=== PATIENT | male | born 1975 | race Caucasian/White ===

== ENCOUNTER → 2016-12-23 | Outpatient (CLI) | payer OTHER ==
[~2016-12-23] MED LIST: ACULAR 3 ML3 M1 OP; ANAPROX DS550 MG PO; DURICEF500 MG PO; FLONASE ALLERG9.9 ML NAS; LIDEX0.05% T; LISINOPRIL HCTZ1 TA1 PO; MOTRIN800 MG PO; PREDNICOT20 MG PO; PREDNISONE10 MG PO; ROBITUSSIN AC 110 ML PO; TRAMADOL HCL50 MG PO; TRICOR48 MG PO; Tobrex Ophth S2.5 ML OPH; ZYRTEC10 MG PO
== END | disposition home or self-care (01) ==
LOC: US 11-29 10:00
DX: K76.0 Fatty (change of) liver, not elsewhere classified (principal); E78.1 Pure hyperglyceridemia; R74.8 Abnormal levels of other serum enzymes

== ENCOUNTER → 2017-01-17 | Outpatient (CLI) | payer OTHER ==
[~2017-01-17] MED LIST changes: +ASPIR 8181 MG PO; +FENOFIBRATE160 MG PO; +NORVASC5 MG PO; +PREVACID30 M3 PO
== END | disposition home or self-care (01) ==
LOC: CARD 01:36
DX: R07.89 Other chest pain (principal)

== ENCOUNTER 2021-11-29 20:26 | Emergency (ER) | payer BC | END 2021-11-29 20:46 | disposition home or self-care (01) | LOC: ED 20:26 | DX: S01.01XA Laceration without foreign body of scalp, initial encounter (principal); Z79.899 Other long term (current) drug therapy; Z79.82 Long term (current) use of aspirin; X58.XXXA Exposure to other specified factors, initial encounter; Y93.89 Activity, other specified; Y92.89 Other specified places as the place of occurrence of the external cause; Y99.8 Other external cause status ==

== ENCOUNTER 2023-08-03 20:38 | Emergency (ER) | payer BC ==
[~2023-08-03] VITALS: Ht 180.3 cm; Wt 112.0 kg
[2023-08-03 21:59] LABS: BASO # 0.1 10*3/uL (0.0-0.1); BASO % 0.6 % (0.0-1.0); EOS # 0.3 10*3/uL (0.0-0.4); EOS % 3.4 % (1.0-4.0); HEMATOCRIT 46.9 % (42.0-52.0); LYMPH # 2.4 10*3/uL (1.3-4.4); LYMPH % 27.7 % (27.0-41.0); MEAN CELL VOLUME 88.3 fl (80.0-94.0); MEAN CORPUSCULAR HGB 31.8 pg (27.0-31.0); MONO # 0.7 10*3/uL (0.1-1.0); MONO % 8.2 % (3.0-9.0); NEUT # 5.2 10*3/uL (2.3-7.9); NEUT % 59.8 % (47.0-73.0); PLATELET COUNT AUTOMATED 330 10*3/uL (130-400); RED BLOOD COUNT 5.31 10*6/uL (4.50-5.90); RED CELL DISTRI WIDTH 12.5 % (0-14.5); WHITE BLOOD COUNT 8.7 10*3/uL (4.8-10.8)
[2023-08-03 22:15] LABS: ALKALINE PHOSPHATASE 62 U/L (46-116); BUN 12 mg/dl (9-23); CHLORIDE 105 mmol/L (98-107); POTASSIUM 3.3 mmol/L (3.4-5.1); SGPT/ALT 42 U/L (5-49); TOTAL PROTEIN 7.3 gm/dL (6.0-8.0)
[2023-08-03 22:18] LABS: ACT PARTIAL THROMBO TIME 27.7 SECONDS (20.0-32.1)
== END 2023-08-05 03:41 | disposition short-term general hospital (02) ==
LOC: ED 20:38
PROVIDERS: Family Medicine
DX: I21.4 Non-ST elevation (NSTEMI) myocardial infarction (principal); F17.210 Nicotine dependence, cigarettes, uncomplicated; Z79.899 Other long term (current) drug therapy

== ENCOUNTER 2024-08-11 15:25 | Emergency (ER) | payer BC ==
[~2024-08-11] VITALS: Ht 177.8 cm; Wt 106.6 kg
[2024-08-11] MEDS ORDERED: ZYRTEC-D TABLE1 EACH PO (16:11)
[2024-08-11] MEDS ORDERED: COREG12.5 M1 PO (16:11)
[2024-08-11] MEDS ORDERED: NORVASC2.5 MG PO (16:11)
[2024-08-11] MEDS ORDERED: LIPITOR40 MG PO (16:11)
[2024-08-11] MEDS ORDERED: Clopidogrel75 MG PO (16:12)
[2024-08-11] MEDS ORDERED: ASPIRIN CHEWABL81 MG PO (16:12)
[2024-08-11] MEDS ORDERED: Albuterol Sulf/Ipratropium 3 ML VIAL NEB ONE (17:15)
[2024-08-11] MEDS ORDERED: AZITHROMYCIN 250 MG TAB PO ONE (17:15)
[2024-08-11] MEDS ORDERED: predniSONE 20 MG TAB PO ONE (17:15)
[2024-08-11] MEDS ORDERED: PREDNISONE20 M1 PO (17:24)
[2024-08-11] MEDS ORDERED: ZITHROMAX250 MG PO (17:24)
[2024-08-11] MEDS ORDERED: ALBUTEROL2.5 MG/0.5 INH (17:24)
== END 2024-08-11 17:35 | disposition home or self-care (01) ==
LOC: ED 15:25
DX: U07.1 COVID-19 (principal); J40 Bronchitis, not specified as acute or chronic; F41.9 Anxiety disorder, unspecified; I10 Essential (primary) hypertension; Z90.89 Acquired absence of other organs